=== PATIENT | male | born 1960 | race Caucasian/White ===

== ENCOUNTER 2018-09-25 14:15 | Emergency (ER) | payer OTHER | END 2018-09-25 15:51 | disposition home or self-care (01) | LOC: FTE 15:51 | DX: R05 Cough (principal) | CPT/HCPCS: 99283; Z7502 ==

== ENCOUNTER 2019-06-28 12:30 | Emergency (ER) | payer OTHER ==
[2019-06-28] MEDS: KETOROLAC 30 MG INJ IM (13:18)
[2019-06-28] MEDS: METHOCARBAMOL 750 MG TAB PO (13:21)
== END 2019-06-28 14:44 | disposition home or self-care (01) ==
LOC: FTE 12:30
DX: M54.2 Cervicalgia (principal); M54.6 Pain in thoracic spine
CPT/HCPCS: 72040; 72072; 96372; 99284-25

== ENCOUNTER 2019-07-08 18:29 | Emergency (ER) | payer OTHER ==
[2019-07-08] MEDS: KETOROLAC 60 MG INJ IM (20:11)
== END 2019-07-08 20:39 | disposition home or self-care (01) ==
LOC: FTE 18:29
DX: M54.12 Radiculopathy, cervical region (principal)
CPT/HCPCS: 93005; 96372; 99284-25